=== PATIENT | male | born 1990 | race Caucasian/White ===

== ENCOUNTER 2016-08-23 04:12 | Emergency (ER) | payer OTHER ==
[~2016-08-23] VITALS: Ht 177.8 cm; Wt 77.3 kg
[2016-08-23 04:15] VITALS: BP 136/82; PULSE 83; RESP 16; O2SAT 97
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
[2016-08-23 05:28] VITALS: BP 133/63; PULSE 75; RESP 26; O2SAT 97
[2016-08-23] MEDS ORDERED: CEPH-512 PO (05:31)
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
== END 2016-08-23 05:31 | disposition home or self-care (01) ==
LOC: SED 04:12
DX: S02.2XXA Fracture of nasal bones, initial encounter for closed fracture (principal); F10.129 Alcohol abuse with intoxication, unspecified; V48.5XXA Car driver injured in noncollision transport accident in traffic accident, initial encounter; Y93.89 Activity, other specified; Y92.410 Unspecified street and highway as the place of occurrence of the external cause; Z88.2 Allergy status to sulfonamides